=== PATIENT | female | born 1965 | race Caucasian/White ===

== ENCOUNTER 2019-02-02 09:51 | Day surgery (SDC) | payer OTHER ==
[2019-02-01 19:25] VITALS: BMI 28.6
[2019-02-02] MEDS ORDERED: LIDOCAINE HCL 1%, 10 MG/ML (20ML VIAL) INF ONE ×2 (11:35)
[2019-02-02] MEDS ORDERED: methylPREDNISolone ACET (DEPO) 80 MG/1 ML VIAL IM ONE (11:35)
[2019-02-02] MEDS ORDERED: IOHEXOL 180 MG/1 ML ML IJ ONE ×2 (11:35)
[2019-02-02 12:31] VITALS: BP 155/79; PULSE 84; TEMP 97.7
== END 2019-02-02 12:32 | disposition home or self-care (01) ==
LOC: JASU-SURG 09:51
PROVIDERS: ATTEND Anesthesiology
PROC: 3E0R33Z Introduction of Anti-inflammatory into Spinal Canal, Percutaneous Approach (ICD-10-PCS; 2019-02-02)
PROC: 3E0R3BZ Introduction of Anesthetic Agent into Spinal Canal, Percutaneous Approach (ICD-10-PCS; principal; 2019-02-02 11:00)
DX: M54.17 Radiculopathy, lumbosacral region (principal); M51.26 Other intervertebral disc displacement, lumbar region; M51.37 Other intervertebral disc degeneration, lumbosacral region; I10 Essential (primary) hypertension; E11.9 Type 2 diabetes mellitus without complications
CPT/HCPCS: 76000-TC-FY; 82962